=== PATIENT | female | born 1960 ===

== ENCOUNTER 2019-01-06 11:52 | Emergency (ER) | payer BC ==
[~2019-01-06] VITALS: Ht 170.2 cm; Wt 80.0 kg
[2019-01-06 11:57] VITALS: Ht 170.2 cm; Wt 80.0 kg
[2019-01-06] MEDS ORDERED: LUMIGAN 0.01%2.5 ML EACH EYE (11:59)
[2019-01-06] MEDS ORDERED: TIMOPTIC 0.5 % O5 ML EACH EYE (12:00)
[2019-01-06] MEDS ORDERED: XELJANZ5 MG PO (12:00)
[2019-01-06] MEDS ORDERED: ALDACTONE25 MG PO (12:02)
[2019-01-06] MEDS ORDERED: PREDNISONE5 MG PO (12:02)
[2019-01-06] MEDS ORDERED: PROTONIX40 MG PO (12:03)
[2019-01-06] MEDS ORDERED: NAPROSYN500 MG PO (12:03)
[2019-01-06] MEDS ORDERED: GLUCOPHAGE500 MG PO (12:04)
[2019-01-06] MEDS ORDERED: METHOTREXATE2.5 MG PO (12:04)
[2019-01-06] MEDS ORDERED: CYCLOBENZAPRINE10 MG PO (12:05)
[2019-01-06] MEDS ORDERED: GLIMEPIRIDE2 MG PO (12:05)
[2019-01-06] MEDS ORDERED: AMBIEN10 MG PO (12:05)
[2019-01-06 13:18] LABS: BASOPHILS 0.1 % (0-2); EOSINOPHILS 0.6 % (0-7); HEMATOCRIT 38.6 % (36.0-48.0); HEMOGLOBIN 12.8 g/dL (12-16); IMMATURE GRANULOCYTES 0.1 % (0-5); MCH 29.1 pg (26.0-34.0); MCHC 33.2 g/dL (31.0-37.0); MCV 87.7 fL (80.0-100.0); MEAN PLATELET VOLUME 9.4 fL (7.4-10.4); MONOCYTES 3.5 % (2-11); NEUTROPHILS 76.7 % (40-80); PLATELET COUNT 419 10x3/uL (130-400); RDW 14.8 % (11.5-14.5); WBC 7.1 10x3/uL (4.8-10.8)
[2019-01-06 13:25] LABS: APTT 26.5 SECONDS (22.8-39.4); INR 0.91 (0.85-1.17); PROTIME 11.8 SECONDS (11.6-15.0)
[2019-01-06 13:31] LABS: ALBUMIN 3.3 g/dL (3.4-5.0); ALKALINE PHOSPHATASE 76 U/L (46-116); ALT (SGPT) 29 U/L (10-68); BILIRUBIN - TOTAL 0.28 mg/dL (0.2-1.3); CALC OSMOLALITY 282 mosm/kg (275-300); CALCIUM 9.5 mg/dL (8.5-10.1); CARBON DIOXIDE 30.8 mmol/L (21.0-32.0); CHLORIDE - SERUM 104 mmol/L (98-107); CREATININE - SERUM 0.8 mg/dL (0.6-1.3); GLUCOSE 144 mg/dL (74-106); POTASSIUM - SERUM 3.6 mmol/L (3.5-5.1); PROTEIN - SERUM 8.4 g/dL (6.4-8.2); SODIUM 141 mmol/L (136-145); UREA NITROGEN 11 mg/dL (7-18); eGFR NON AFRICAN AMERICAN 78 mL/min (90-120)
[2019-01-06 13:44] LABS: CKMB 0.5 U/L (0.0-3.6); CREATINE KINASE 76 UL (21-215); MAGNESIUM - SERUM 2.1 mg/dL (1.8-2.4)
[2019-01-06 13:45] LABS: TROPONIN-I < 0.017 ng/mL (0.000-0.060)
[2019-01-06 15:20] VITALS: BP 133/80
== END 2019-01-06 15:20 | disposition home or self-care (01) ==
LOC: D.ER 11:52
PROVIDERS: Family Medicine
DX: R55 Syncope and collapse (principal)